=== PATIENT | female | born 1945 | race Caucasian/White ===

== ENCOUNTER 2017-09-27 17:28 | Emergency (ER) | payer MEDICARE ==
[~2017-09-27] VITALS: Ht 157.5 cm; Wt 70.6 kg
[2017-09-27 17:37] VITALS: BP 165/74; PULSE 81; RESP 18; TEMP 97.3; O2SAT 95
[2017-09-27] MEDS ORDERED: ATOR40TA16 PO (17:54)
[2017-09-27] MEDS ORDERED: MULTTAB67 PO (17:54)
--- NOTE | 2017-09-27 17:59 | PD ---
HPI Chief Complaint: Musculoskeletal Complaint Time Seen by Provider: 17:43 Travel History International Travel<30 days: No Contact w/Intl Traveler<30days: No Traveled to known affect area: No History of Present Illness HPI 72-year-old female presents to the emergency room for evaluation of right shoulder pain after slip and fall just prior to arrival. Patient states she either slipped on the kitchen floor or fell over a rug but denies loss of consciousness/syncope. She denies hitting her head. She states there was a shattered plate on the ground. She denies any other complaints. No headache, chest pain, abdominal pain, neck pain, back pain, or lower extremity pain. Pain is localized to the right posterior shoulder and radiates into her humerus. Worse with any range of motion. Improves when she holds it against her abdomen and still. She has not taken anything for symptoms. Denies paresthesias. PFSH Past Medical History Cardiovascular Problems: Yes High Cholesterol: Yes Diminished Hearing: No Influenza Vaccination: No ?: Not Past Surgical History Coronary Stent: Yes (five) Social History Alcohol Use: Yes Tobacco Use: No Allergies-Medications (Allergen,Severity, Reaction): Coded Allergies: Penicillins (Verified Allergy, Severe, Anaphylaxis, 09/27/17) Reported Meds & Prescriptions Reported Meds & Active Scripts Active Hydrocodone-Acetaminophen 5-325 mg Tab 1 Tab PO Q6H PRN Reported Multiple Vitamin 1 Tab 1 Tab PO DAILY Atorvastatin (Atorvastatin Calcium) 40 Mg Tab 40 Mg PO HS Review of Systems Except as stated in HPI: all other systems reviewed are Neg Physical Exam Narrative GENERAL: Well-nourished, well-developed female no acute distress. Afebrile. Ambulatory. SKIN: Focused skin assessment warm/dry. No erythema or ecchymosis. HEAD: Normocephalic. EYES: No scleral icterus. No injection or drainage. NECK: Supple, trachea midline. No JVD or lymphadenopathy. No midline tenderness. Full range of motion. CARDIOVASCULAR: Regular rate and rhythm without murmurs, gallops, or rubs. RESPIRATORY: Breath sounds equal bilaterally. No accessory muscle use. MUSCULOSKELETAL: No cyanosis. No obvious edema. 2+ radial pulse. Radial, ulnar, and median nerves intact. Limited range of motion of the right shoulder secondary to pain. Pain is decreased with passive range of motion. BACK: Nontender without obvious deformity. No CVA tenderness. Data Data Last Documented VS Vital Signs Date Time Temp Pulse Resp B/P (MAP) Pulse Ox O2 Delivery O2 Flow Rate FiO2 09/27/17 18:39 71 18 108/74 (85) Room Air 97 09/27/17 17:37 97.3 95 Orders Orders Shoulder, Complete (>2vws) (09/27/17 ) Humerus (Min 2vws) (09/27/17 ) Acetamin-Hydrocod 325-5 Mg ([place] 5-325 (09/27/17 18:00) Splint Or Brace Apply/Monitor (09/27/17 18:35) [facility] Medical Decision Making Medical Screen Exam Complete: Yes Emergency Medical Condition: Yes Medical Record Reviewed: Yes Differential Diagnosis Fracture, sprain, strain, contusion, dislocation Narrative Course 72-year-old female presents to the emergency room for evaluation of right shoulder pain after injuring it just prior to arrival. Patient had a mechanical fall in her kitchen. She adamantly denies hitting her head, loss of consciousness, or any other injuries. Physical exam is reassuring. Patient is holding her right arm flexed against her abdomen. She appears to be in pain. Right upper extremity is neurovascularly intact with 2+ radial pulse. Radial, ulnar, median nerves intact. There is extreme tenderness to palpation over the proximal humerus. She has limited range of motion secondary to pain. She was given hydrocodone for pain in the ED. X-ray shows mildly comminuted proximal humeral head and neck fracture. Patient was placed in sling and swath and told to follow-up with an orthopedic surgeon. She will be discharged with prescription for hydrocodone. It was noted throughout the ER stay that she had a very small 3 mm superficial abrasion to her forehead. Patient states there is a shattered plate on the floor and I suspect a piece of shrapnel cut her head. It did not require any repair. She denies any headache and is not on blood thinners. Diagnosis Primary Impression: Proximal humeral fracture Qualified Codes: S42.294A - Other nondisplaced fracture of upper end of right humerus, initial encounter for closed fracture Referrals: Orthopaedic Surgeon Additional Instructions: Rest and drink plenty of fluids. Hydrocodone as directed, as needed for pain. This medication may make you drowsy. Do not drink alcohol or drive while taking this medication. Apply ice to the affected area for 20 minutes at a time, as needed for pain and swelling. Follow-up with a primary care physician. Return to the emergency room for worsening symptoms. Med/Other Pt SpecificInfo: Prescription(s) given Scripts Hydrocodone-Acetaminophen (Hydrocodone-Acetaminophen) 5-325 mg Tab 1 TAB PO Q6H Y for PAIN, #12 TAB 0 Refills Prov: Jason Bazzi MD 09/27/17 Disposition: 01 DISCHARGE HOME Condition: Stable Esther Leroy September 27, 2017 17:59
[2017-09-27] MEDS ORDERED: ACETAMINOPHEN/HYDROcodone 325 MG/5 MG TAB PO ONE (18:00)
[2017-09-27] MEDS ORDERED: HYDR-3516 PO ×2 (18:27→18:30)
--- NOTE | 2017-09-27 18:36 | RADRPT ---
EXAM DATE: 09/27/2017 6:23 PM EDT AGE/SEX: 72 years / Female INDICATIONS: Proximal right shoulder pain after fall. CLINICAL DATA: This is the patient's initial encounter. Patient reports that signs and symptoms have been present for 1 day and indicates a pain score of 10/10. MEDICAL/SURGICAL HISTORY: None. None. COMPARISON: None. FINDINGS: Multiple views of the right shoulder were obtained and demonstrate a mildly comminuted fracture defor mity of the right humeral head and neck. There are multiple ill-defined fracture lines involving the lesser and greater tuberosities. There is no significant distraction or angulation. The scapula and g lenoid are intact. The acromion clavicular joint is within normal limits. There is mild osteopenia. CONCLUSION: Mildly comminuted fracture deformity right humeral head and neck. Electronically signed by: Carlos Forman MD 09/27/2017 6:34 PM EDT
--- NOTE | 2017-09-27 18:37 | RADRPT ---
EXAM DATE: 09/27/2017 6:24 PM EDT AGE/SEX: 72 years / Female INDICATIONS: Proximal right humerus pain after fall. CLINICAL DATA: This is the patient's initial encounter. Patient reports that signs and symptoms have been present for 1 day and indicates a pain score of 10/10. MEDICAL/SURGICAL HISTORY: None. None. COMPARISON: Right shoulder examination from this date. FINDINGS: AP and lateral views of the right humerus were obtained. There is motion artifact on the lateral view . The comminuted fracture of the right humeral head and neck are again visualized. The mid and distal humerus are intact. CONCLUSION: Mildly comminuted fracture deformity of the right humeral head and neck again noted. The mid and dist al humerus are intact. Electronically signed by: Carlos Forman MD 09/27/2017 6:36 PM EDT
[2017-09-27 18:39] VITALS: BP 108/74; PULSE 71; RESP 18
== END 2017-09-27 19:07 | disposition home or self-care (01) ==
LOC: PHEFT 17:28
DX: S42.294A Other nondisplaced fracture of upper end of right humerus, initial encounter for closed fracture (principal); W01.0XXA Fall on same level from slipping, tripping and stumbling without subsequent striking against object, initial encounter; Y93.01 Activity, walking, marching and hiking; Y92.000 Kitchen of unspecified non-institutional (private) residence as the place of occurrence of the external cause
CPT/HCPCS: 29240; 73030; 73060